=== PATIENT | male | born 1940 | race Caucasian/White ===

== ENCOUNTER 2020-05-15 15:31 | Outpatient (CLI) | payer MEDICARE, SELFPAY ==
--- NOTE | ~2020-05-15 | XR_ITS ---
XR chest 2V DATE: 05/15/2020 15:59 INDICATION: Chronic obstructive pulmonary disease TECHNIQUE: AP and lateral views COMPARISON: 06/07/2011 portable AP chest FINDINGS: Cardiomegaly. Aortic calcification and mild tortuosity. No hilar or mediastinal enlargement . Mild elevation of the right leaf of the diaphragm. There are mild infiltrates or atelectasis at both lung bases. IMPRESSION: Mild bibasilar infiltrate and/atelectasis Reviewed, dictated and finalized at location A. 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
== END 2020-05-15 15:32 | disposition home or self-care (01) ==
PROVIDERS: PCP Emergency Medicine; Visit Provider Nurse Practitioner Family
DX: J44.9 Chronic obstructive pulmonary disease, unspecified (principal); R06.02 Shortness of breath; R91.8 Other nonspecific abnormal finding of lung field
CPT/HCPCS: 71046

== ENCOUNTER 2020-06-13 14:32 | Outpatient (CLI) | payer MEDICARE, SELFPAY ==
--- NOTE | 2020-06-13 15:12 | ECHO_ITS ---
Patient Info Name: Carlos Enrique Berrios Age: 79 years : 1940 Gender: Male Ht: 73 in Wt: 310 lbs BSA: 2.75 m2 HR: 60 bpm BP: 154 / 70 mmHg Heart Rhythm: Sinus Rhythm Technical Quality: Fair Exam Date: 06/13/2020 3:22 PM Exam Location: [facility] Patient Status: Outpatient Admit Date: 06/13/2020 Staff Ordering Physician: Laury Jarrell MD Sql [employer] Dba Developer: Everardo Jain RDCS Attending Provider: Laury Jarrell MD Referring Physician: Chrystal GALLARDO; Exam Type: CA echo dop color flow w con Study Info Indications R06.02 - Shortness of breath Complete two-dimensional, color flow and Doppler transthoracic echocardiogram is performed with contrast to opacify the left ventricle and to improve the deliniation of the left ventricle endocardial borders. Contrast/Agitated Saline Contrast/Ag. Saline: Definity Amount: 2.00 ml Existing IV Access: Yes History/Risk Factors Shortness of breath, HTN. Summary 1. Left ventricular chamber dimension is normal. 2. Left ventricular systolic function is normal, estimated at 60-65%. 3. There is moderately increased left ventricular wall thickness. 4. The left ventricular diastolic function is grade I diastolic dysfunction. 5. E/e' 12 is mildly elevated. Left Ventricle E/e' 12 is mildly elevated. Left ventricular chamber dimension is normal. Left ventricular systolic function is normal, estimated at 60-65%. There is moderately increased left ventricular wall thickness. The left ventricular diastolic function is grade I diastolic dysfunction. Right Ventricle Right ventricular systolic function is normal and with normal TAPSE 2.8 cm.. Right ventricular chamber dimension is normal. Left Atria Left atrial chamber dimension is normal. Right Atria Right atrial chamber dimension is normal. Aortic Valve The aortic valve is probable trileaflet. There is no aortic valve stenosis. There is no aortic valve regurgitation. Pulmonic Valve The pulmonic valve is not well visualized. Mitral Valve There is no mitral valve stenosis. There is no mitral valve regurgitation. Tricuspid Valve There is no tricuspid valve regurgitation. Pericardium/Pleural There is no pericardial effusion. Aorta The aortic root size at the sinus of Valsalva is normal. Left Ventricular Outflow Tract Name Value Normal LVOT 2D LVOT Diameter 2.41 cm LVOT Doppler LVOT Peak Gradient 4 mmHg LVOT Mean Gradient 2 mmHg LVOT VTI 21.98 cm LVOT VTI/AV VTI Ratio 0.73 LVOT Stroke Volume 100.61 ml LVOT CO 5.92 l/min LVOT CI 2.15 L/min/m2 Mitral Valve Name Value Normal MV Doppler
[2020-06-13] MEDS: PERFLUTREN LIPID MICROSPHERES 1.5 ML VIAL DILUTED TO 10 ML TOTAL VOLUME IV PUSH (16:10)
== END 2020-06-13 14:33 | disposition home or self-care (01) ==
PROVIDERS: PCP Emergency Medicine; Visit Provider Internal Medicine Critical Care Medicine
DX: G47.30 Sleep apnea, unspecified (principal); R06.02 Shortness of breath; R09.02 Hypoxemia
CPT/HCPCS: C8929

== ENCOUNTER 2020-09-05 14:27 | Outpatient (CLI) | payer MEDICARE, SELFPAY ==
--- NOTE | ~2020-09-05 | US_ITS ---
EXAMINATION: US retroperitoneal comp DATE: 09/05/2020 15:01 INDICATION: Chronic urinary tract infection TECHNIQUE: Multiple ultrasound grayscale images of the kidneys were obtained. COMPARISON: CT dated 11/17/2017 FINDINGS: The right kidney measures 12.3 x 6.0 x 6.0 cm. The left kidney measures 11.8 x 4.8 x 6.0 cm. The kidn eys demonstrate normal echogenicity. There is no hydronephrosis in either kidney. No stones identifi ed. The bladder is decompressed reportedly around a Al catheter which limits evaluation. IMPRESSION: 1. Normal kidneys without hydronephrosis. Reviewed, dictated and finalized at location B. 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
== END 2020-09-05 14:28 | disposition home or self-care (01) ==
LOC: ANHIMG 14:32
PROVIDERS: PCP Emergency Medicine; Visit Provider Urology
DX: N39.0 Urinary tract infection, site not specified (principal)
CPT/HCPCS: 76770

== ENCOUNTER 2021-10-04 14:19 | Outpatient (CLI) | payer MEDICARE, SELFPAY ==
[2021-10-04] VITALS (8 sets, daily range): PULSE 54–68; O2SAT 82–98
--- NOTE | 2021-10-04 15:08 | HOMEO2EVAL ---
Evaluation was performed at [facility] Oxygen Evaluation RC: Home Oxygen (O2) Evaluation Start: 10/04/21 15:03 Freq: Status: Active Protocol: RPE Activity Type Activity Date Activity User E-Sign Co-Sign Detail Recorded Client Recorded Date Recorded By Document 10/04/21 14:20 [email or web address] [email or web address] 10/04/21 15:08 DJO Document 10/04/21 14:25 [email or web address] [email or web address] 10/04/21 15:08 DJO Document 10/04/21 14:30 [email or web address] [email or web address] 10/04/21 15:08 DJO Document 10/04/21 14:35 [email or web address] [email or web address] 10/04/21 15:08 DJO Document 10/04/21 14:40 [email or web address] [email or web address] 10/04/21 15:08 DJO Document 10/04/21 14:45 [email or web address] [email or web address] 10/04/21 15:08 DJO Document 10/04/21 14:50 [email or web address] [email or web address] 10/04/21 15:08 DJO Document 10/04/21 15:05 [email or web address] [email or web address] 10/04/21 15:08 DJO 10/04/21 10/04/21 10/04/21 14:20 14:25 14:30 Home O2 Evaluation Test Phase Resting Exercise Exercise Oxygen Delivery Room Air Room Air Nasal Cannula Oxygen Flow Rate (L/min) 1 Pulse Oximetry (90-100 %) 98 82 L 83 L Pulse Rate (60-100 beats/min) 55 L 66 62 Activity Tolerance Ambulation Distance (feet) Ambulation Distance (meters) Treatment Charges O2 Evaluation - Outpatient 10/04/21 10/04/21 10/04/21 14:35 14:40 14:45 Home O2 Evaluation Test Phase Exercise Exercise Exercise Oxygen Delivery Nasal Cannula Nasal Cannula Nasal Cannula Oxygen Flow Rate (L/min) 2 3 4 Pulse Oximetry (90-100 %) 84 L 86 L 87 L Pulse Rate (60-100 beats/min) 66 67 67 Activity Tolerance Ambulation Distance (feet) Ambulation Distance (meters) Treatment Charges 10/04/21 10/04/21 14:50 15:05 Home O2 Evaluation Test Phase Exercise Resting Oxygen Delivery Nasal Cannula Room Air Oxygen Flow Rate (L/min) 5 Pulse Oximetry (90-100 %) 90 98 Pulse Rate (60-100 beats/min) 68 54 L Activity Tolerance Poor Ambulation Distance (feet) 30 Ambulation Distance (meters) 9.14 Treatment Charges
--- NOTE | 2021-10-04 16:55 | WPDPFTINT ---
PFT Procedure Performed PFT Procedure Performed Spirometry with Pre/Post Bronchodilator Plethysmography (Lung Vol) Diffusing Cap (DLCO) Flow Vol Loop PFT Interpretation This is a pulmonary function test with pre and post-bronchodilator spirometry, plethysmography and diffusing capacity. The test was performed and results interpreted in accordance with the 2019 and 2005 ATS/ERS Task Force guidelines respectively using the Global Lung Function Initiative-2012 reference equations. Patient demonstrated good effort and cooperation. Reproducibility criteria were met. The quality of the pre bronchodilator spirometry maneuver was Grade B and post bronchodilator spirometry maneuver was Grade A. Findings: Spirometry: There is decreased maximal expiratory airflow at all lung volumes with a concaved expiratory flow tracing. The contour the inspiratory flow tracing is normal. The pre bronchodilator FVC is 2.20 L, 51% predicted. The pre bronchodilator FEV1 is 1.04 L, 33% predicted. The FEV1: FVC ratio is 47%. The post bronchodilator FVC is 2.19 L, representing 1% decrease. The post bronchodilator FEV1 is 1.01 L, representing a 3% decrease. The post bronchodilator FEV1: FVC ratio is 46%. Plethysmography: The total lung capacity is 5.31 L, 70% predicted. The functional residual capacity is 3.76 L, 90% predicted. The residual volume is 3.07 L, 109% predicted. Diffusion capacity: The diffusion capacity unadjusted for hemoglobin and carboxyhemoglobin is 12.1, 48% predicted. The diffusing capacity adjusted for alveolar volume is 3.81, 111% predicted. Impression: There is a combined obstructive and restrictive ventilatory abnormality. There are no guidelines to assign the severity of obstruction and restriction with a combined abnormality. In my opinion, given the severely concave expiratory flow tracing and severely decreased FEV1: FVC ratio and mild restrictive abnormality I would state there is a moderate severe obstructive abnormality and a mild restrictive abnormality resulting in a very severely decreased FEV1. There is no significant improvement after inhaling a single dose of albuterol. The diffusing capacity unadjusted for hemoglobin and carboxyhemoglobin is moderately decreased and normalizes when adjusted for alveolar volume. There are no prior studies for comparison
== END 2021-10-04 14:20 | disposition home or self-care (01) ==
PROVIDERS: PCP Emergency Medicine; Visit Provider Internal Medicine Pulmonary Disease
DX: R06.00 Dyspnea, unspecified (principal); R94.2 Abnormal results of pulmonary function studies
CPT/HCPCS: 94060; 94618; 94726; 94729